=== PATIENT | male | born 1965 | race Caucasian/White ===

== ENCOUNTER 2021-01-27 07:48 | Emergency (ER) | payer MEDICAID ==
[~2021-01-27] VITALS: Ht 177.8 cm; Wt 97.4 kg
[2021-01-27] MEDS ORDERED: LISINOPRIL20 MG PO (08:03)
--- NOTE | 2021-01-27 10:56 | EKG ---
[facility] [address] [place], [place] [address] Signed Normal sinus rhythm Left ventricular hypertrophy with repolarization abnormality Abnormal ECG No previous ECGs available Confirmed by LACHO KIM DO ([id number]) on 01/27/2021 10:56:04 AM Electronically Signed By: LACHO KIM DO 01/27/21 1056 PATIENT NAME: BRYAN CHU LAURA Electrocardiogram DATE OF : 69 PHYSICIAN: LACHO KIM DO REPORT #: [id number] REPORT IS CONFIDENTIAL AND NOT TO BE RELEASED WITHOUT AUTHORIZATION
== END 2021-01-27 10:51 | disposition home or self-care (01) ==
LOC: ED 07:48
DX: R07.89 Other chest pain (principal); I10 Essential (primary) hypertension; Z87.891 Personal history of nicotine dependence; Z79.899 Other long term (current) drug therapy; Z88.1 Allergy status to other antibiotic agents
CPT/HCPCS: 80053; 84484; 85025; 93005; 93010; 99285-25